=== PATIENT | female | born 1975 | race African-American/Black ===

== ENCOUNTER 2022-05-02 09:26 | Emergency (ER) | payer OTHER ==
[~2022-05-02] VITALS: Ht 160 cm; Wt 87.0 kg
[2022-05-02 09:36] VITALS: BP 149/88
[2022-05-02 12:34] LABS: BASOPHILS % 0.2 % (0.0-2.0); EOSINOPHILS % 1.3 % (0.0-5.0); HEMATOCRIT. 41.1 % (36.0-48.0); HEMOGLOBIN. 13.5 g/dL (12.0-16.0); LYMPHOCYTES % 18.2 % (20.0-50.0); MEAN CORPUSCULAR HEMOGLOBIN 29.7 pg (28.0-32.0); MEAN CORPUSCULAR VOLUME 90.7 fL (81.0-99.0); MEAN PLATELET VOLUME 9.6 fl (7.4-10.4); MONOCYTES % 8.6 % (2.0-8.0); NEUTROPHILS % 71.7 % (40.0-76.0); PLATELET 275 x1000/uL (130-400); RED BLOOD CELL COUNT 4.53 mill/uL (4.2-5.4); RED CELL DISTRIBUTION WIDTH 13.7 % (11.6-14.6)
[2022-05-02 12:43] LABS: CHLORIDE 103 mEq/L (98-107)
[2022-05-02] MEDS ORDERED: SULF1TAB48 MT (14:16)
[2022-05-02] MEDS ORDERED: NAPR-681 PO (14:16)
[2022-05-02] MEDS ORDERED: CEPH500C2 MT (14:16)
== END 2022-05-02 14:33 | disposition home or self-care (01) ==
LOC: ER 09:26
DX: L03.115 Cellulitis of right lower limb (principal); E11.9 Type 2 diabetes mellitus without complications; Z90.49 Acquired absence of other specified parts of digestive tract; Z98.890 Other specified postprocedural states; Z91.010 Allergy to peanuts
CPT/HCPCS: 36415; 73630; 80048; 81025; 85025; 99284

== ENCOUNTER 2023-01-26 12:43 | Emergency (ER) | payer OTHER ==
[~2023-01-26] VITALS: Ht 160 cm; Wt 91.0 kg
[~2023-01-26 12:43] MED LIST: CEPH500C2 MT; NAPR-681 PO; SULF1TAB48 MT
[2023-01-26 12:50] VITALS: BP 162/96; PULSE 89; RESP 17; TEMP 98.6; O2SAT 99
[2023-01-26] MEDS ORDERED: AMOX1TAB16 MT (15:43)
== END 2023-01-26 16:42 | disposition home or self-care (01) ==
LOC: ER 12:43
DX: J32.9 Chronic sinusitis, unspecified (principal); E11.9 Type 2 diabetes mellitus without complications; Z90.49 Acquired absence of other specified parts of digestive tract; Z98.890 Other specified postprocedural states; Z98.51 Tubal ligation status
CPT/HCPCS: 99283